=== PATIENT | female | born 1945 | race Caucasian/White ===

== ENCOUNTER 2022-03-06 13:42 | Outpatient (CLI) | payer MEDICARE, BC ==
[~2022-03-06 13:42] MED LIST: Iopamidol 300 61% 100 ML VIAL FS ONE
== END 2022-03-06 13:43 | disposition home or self-care (01) ==
LOC: CSHCT 13:42
PROVIDERS: ATTEND Internal Medicine
DX: R10.32 Left lower quadrant pain (principal); K57.30 Diverticulosis of large intestine without perforation or abscess without bleeding
CPT/HCPCS: 74177; 82565; Q9967

== ENCOUNTER 2022-08-18 10:35 | Outpatient (CLI) | payer MEDICARE, BC | END 2022-08-18 10:36 | disposition home or self-care (01) | LOC: CSHRAD 10:35 | PROVIDERS: ATTEND Internal Medicine | DX: M25.511 Pain in right shoulder (principal); M54.2 Cervicalgia; Z98.890 Other specified postprocedural states; M47.812 Spondylosis without myelopathy or radiculopathy, cervical region | CPT/HCPCS: 72050 ==